=== PATIENT | female | born 1935 | race Caucasian/White ===

== ENCOUNTER 2020-10-12 08:44 | Observation (INO) ==
[2020-10-12 09:14] LABS: Basophils # 0.1 10*3/uL (0.0-0.2); Basophils % 0.8 % (0.0-0.8); Eosinophils # 0.2 10*3/uL (0.0-0.87); Eosinophils % 2.9 % (0.00-10.9); Hematocrit 32.6 VOL% (35.7-47.0); Hemoglobin 9.7 GM/DL (12.0-16.0); Immature Granulocytes % 0.5 %; Immature Granulocytes Absolute 0.03 #; Lymphocytes # 1.2 10*3/uL (1.4-4.0); Lymphocytes % 17.9 % (21.3-54.2); Mean Corpuscular HGB Conc 29.8 GM/DL (32-36); Mean Corpuscular Volume 89.3 FL (87-102); Mean Platelet Volume 8.8 FL (9.6-12.0); Monocytes % 11.7 % (1.7-12.7); Neutrophils % 66.2 % (38.7-73.9); Platelet Count 315 T/CUMM (130-400); Red Blood Count 3.65 MC/CUMM (3.8-5.5); Red Cell Distribution Width 14.7 % (9.3-17.3); White Blood Count 6.5 T/CUMM (4-12)
[2020-10-12 09:38] LABS: Albumin 3.2 G/DL (3.4-5.0); Bilirubin,Total 0.4 MG/DL (0.2-1.0); Calcium 8.6 MG/DL (8.5-10.1); Potassium 3.6 MMOL/L (3.5-5.1); Total Protein 6.3 G/DL (6.4-8.2)
[2020-10-12 09:51] LABS: Bilirubin,Urine Negative (Negative); Blood, Urine Negative (Negative); Glucose,Urine (UA) Negative (Negative); Hyaline Casts,Urine 7 /LPF (0-3); Ketones,Urine Negative (Negative); Mucus,Urine Many /LPF (Occasional); Nitrite,Urine Negative (Negative); Protein,Urine 30 MG/DL; RBC,Urine 1 /HPF (0-4); Squamous Epithelial Cell,Urine Few /HPF (0-10); Urine Appearance Slightly Hazy (Clear); Urine Color Yellow (Yellow); Urine Specific Gravity 1.021 (1.001-1.035); Urine Urobilinogen < 2.0 EU/DL (0.2-1.0)
[2020-10-12] MEDS ORDERED: ONDANSETRON 4 MG/2 ML VIAL IV PRN (12:00)
[2020-10-12] MEDS ORDERED: DEXTROSE 50% 25 GM/50 ML VIAL IV PRN ×2 (12:00→14:42)
[2020-10-12] MEDS ORDERED: GLUCAGON 1 MG VIAL IM PRN ×2 (12:00→14:42)
[2020-10-12] MEDS ORDERED: PANTOPRAZOLE 40 MG TABLET PO PRN (13:57)
[2020-10-12] MEDS: ACETAMINOPHEN 325 MG TABLET PO PRN ×2 (16:26→21:24)
[2020-10-12] MEDS: INSULIN LISPRO 100 UNIT/ML SUBCUT SCH ×2 (17:32→20:52)
[2020-10-12] MEDS: PRIMIDONE 50 MG TABLET PO SCH (20:52)
[2020-10-12] MEDS: DULoxetine 30 MG CAPSULE PO SCH (20:52)
[2020-10-12] MEDS: TOPIRAMATE 25 MG TABLET PO SCH (20:52)
[2020-10-12] MEDS: SIMVASTATIN 10 MG TABLET PO SCH (20:52)
[2020-10-13] MEDS: LEVOTHYROXINE 100 MCG TABLET PO SCH (05:41)
[2020-10-13 06:13] LABS: Basophils # 0.1 10*3/uL (0.0-0.2); Basophils % 0.8 % (0.0-0.8); Eosinophils # 0.2 10*3/uL (0.0-0.87); Eosinophils % 2.9 % (0.00-10.9); Hemoglobin 9.9 GM/DL (12.0-16.0); Immature Granulocytes % 0.3 %; Immature Granulocytes Absolute 0.02 #; Lymphocytes # 1.2 10*3/uL (1.4-4.0); Lymphocytes % 18.9 % (21.3-54.2); Mean Corpuscular Volume 88.7 FL (87-102); Mean Platelet Volume 9.3 FL (9.6-12.0); Neutrophils % 65.1 % (38.7-73.9); Platelet Count 301 T/CUMM (130-400); Red Blood Count 3.72 MC/CUMM (3.8-5.5); Red Cell Distribution Width 14.6 % (9.3-17.3); White Blood Count 6.3 T/CUMM (4-12)
[2020-10-13 06:37] LABS: % Iron Saturation 8.8 % (18-50)
[2020-10-13 06:38] LABS: Folate > 24.00 NG/ML (5.38-24.0); Vitamin B12 > 2000 PG/ML (211-911)
[2020-10-13 06:54] LABS: Osmolality,Calculated 274.1 MOS/KG (273-304); Potassium 3.7 MMOL/L (3.5-5.1); Thyroid Stimulating Hormone 0.071 uIU/ml (0.358-3.74)
[2020-10-13 07:12] LABS: Sedimentation Rate-Westergren 71 MM/HR (0-30)
[2020-10-13] MEDS: INSULIN LISPRO 100 UNIT/ML SUBCUT SCH ×4 (07:30→20:56)
[2020-10-13] MEDS ORDERED: MAGNESIUM SULF RIDER 4 GM/100 ML PREMIX IV PRN (07:43)
[2020-10-13] MEDS ORDERED: MAGNESIUM SULF RIDER 2 GM/50 ML PREMIX IV PRN (07:43)
[2020-10-13] MEDS ORDERED: FERRIC GLUCONATE COMPLEX 125 MG in SODIUM CHLORIDE 0.9% 100 ML IV ONE (09:00)
[2020-10-13] MEDS: CHOLECALCIFEROL 5,000 UNIT TABLET PO SCH (09:02)
[2020-10-13] MEDS: CYANOCOBALAMIN 500 MCG TABLET PO SCH (09:02)
[2020-10-13] MEDS: CLOPIDOGREL 75 MG TABLET PO SCH (09:02)
[2020-10-13 14:52] LABS: ABG Base Excess 10.5 MMOL/L (-2.5-2.5); ABG HCO3 34.3 MMOL/L (20-26); ABG Oxygen Saturation 97.3 % (95-100); ABG PCO2 65.9 MM HG (35-48); ABG PH 7.371 (7.35-7.45); ABG PO2 87.5 MM HG (80-95)
[2020-10-13] MEDS: TOPIRAMATE 25 MG TABLET PO SCH (20:44)
[2020-10-13] MEDS: PRIMIDONE 50 MG TABLET PO SCH (20:45)
[2020-10-13] MEDS: SIMVASTATIN 10 MG TABLET PO SCH (20:46)
[2020-10-13] MEDS: DULoxetine 30 MG CAPSULE PO SCH (20:56)
[2020-10-14] MEDS: LEVOTHYROXINE 100 MCG TABLET PO SCH (06:41)
[2020-10-14] MEDS: INSULIN LISPRO 100 UNIT/ML SUBCUT SCH ×2 (07:30→11:37)
[2020-10-14 08:05] VITALS: BP 102/64
[2020-10-14 08:49] LABS: Calcium 8.7 MG/DL (8.5-10.1); Osmolality,Calculated 274.1 MOS/KG (273-304)
[2020-10-14 09:04] LABS: Basophils % 0.6 % (0.0-0.8); Hemoglobin 9.4 GM/DL (12.0-16.0); Immature Granulocytes % 0.2 %; Immature Granulocytes Absolute 0.01 #; Lymphocytes # 1.1 10*3/uL (1.4-4.0); Lymphocytes % 16.5 % (21.3-54.2); Mean Corpuscular HGB Conc 30.3 GM/DL (32-36); Mean Corpuscular Volume 89.1 FL (87-102); Mean Platelet Volume 9.4 FL (9.6-12.0); Monocytes % 11.2 % (1.7-12.7); Neutrophils % 71.5 % (38.7-73.9); Platelet Count 277 T/CUMM (130-400); Red Blood Count 3.48 MC/CUMM (3.8-5.5); Red Cell Distribution Width 14.6 % (9.3-17.3); White Blood Count 6.5 T/CUMM (4-12)
[2020-10-14] MEDS: CHOLECALCIFEROL 5,000 UNIT TABLET PO SCH (09:17)
[2020-10-14] MEDS: CLOPIDOGREL 75 MG TABLET PO SCH (09:17)
[2020-10-14] MEDS: CYANOCOBALAMIN 500 MCG TABLET PO SCH (09:17)
[2020-10-14] MEDS ORDERED: FERROUS GLUCONATE 324 MG TABLET PO SCH (10:00)
[2020-10-15 08:46] LABS: Hemoglobin A1 (Alkaline) 97.8 % (96.5-98.5); Hemoglobin A2 (Alkaline) 2.2 % (1.5-3.5)
[2020-10-16 14:40] LABS: Tissue Transglutaminase IgA Ab 2.4 U/mL; Tissue Transglutaminase IgG Ab 1.2 U/mL
[2020-10-17 13:00] LABS: IgA Subclass 2 60.3 mg/dL
== END 2020-10-14 11:59 | disposition home health service (06) ==
LOC: N.ED 08:44 → N.EDINP 08:44 → N.5E 12:42
PROVIDERS: ADMIT Internal Medicine; ATTEND Internal Medicine